=== PATIENT | female | born 1975 | race Caucasian/White ===

== ENCOUNTER 2020-10-30 22:12 | Emergency (ER) | payer SELFPAY ==
[2020-10-30 22:51] VITALS: BP 111/52; PULSE 78; RESP 18; TEMP 36.6; O2SAT 98
--- NOTE | 2020-10-30 23:41 | XRR_ITS ---
PROCEDURE INFORMATION: Exam: XR Left Ankle Exam date and time: 10/30/2020 11:41 PM Age: 45 years old Clinical indication: Injury or trauma; Fall; Blunt trauma; Ankle; Left; Patient HX: Twisting injury while walking down steps. Swelling to lateral malleolus. ; Additional info: Ankle injury TECHNIQUE: Imaging protocol: XR Left ankle. Views: 3 or more views. COMPARISON: No relevant prior studies available. FINDINGS: Bones/joints: No acute fracture or dislocation. Soft tissues: Normal. XR/XR ankle LT min 3V* [id number] IMPRESSION: No acute fracture or dislocation.
--- NOTE | 2020-10-30 23:41 | XRR_ITS ---
PROCEDURE INFORMATION: Exam: XR Left Foot Exam date and time: 10/30/2020 11:41 PM Age: 45 years old Clinical indication: Injury or trauma; Fall; Blunt trauma; Foot; Left; Patient HX: Twisting injury while walking down steps. Swelling to lateral malleolus. ; Additional info: Foot injury TECHNIQUE: Imaging protocol: XR Left foot. Views: 3 or more views. COMPARISON: No relevant prior studies available. FINDINGS: Bones/joints: No acute fracture or dislocation. Soft tissues: Normal. XR/XR foot LT min 3V* [id number] IMPRESSION: No acute fracture or dislocation.
[2020-10-31 01:33] VITALS: BP 96/50; PULSE 69; RESP 17; O2SAT 96
--- NOTE | 2020-10-31 02:58 | W.ED.EXTPRO ---
HPI - Extremity Problem General: Chief complaint: Extremity Injury, Lower Stated complaint: LLE INJURY Time Seen by Provider: 10/31/20 02:54 History of Present Illness: HPI Narrative: Patient is a 45-year-old female comes to the ED with left ankle and foot injury. Patient says she was walking down some steps and missed one of the edges of the steps and twisted her left foot and ankle. Injury occurred just prior to arrival. She says it hurts to bear weight on left foot and she rates the pain currently an 8 out of 10. Most of pain is located on the left lateral ankle and around the midfoot of left foot. Associated symptoms: Deny chest pain, fever(s) or rash Review of Systems Const: Denies: fever(s), chills or fatigue Eyes: Denies: change in vision or eye discomfort ENMT: Denies: throat pain, odynophagia, nasal discharge or nasal congestion Card: Denies: chest pain, palpitations, edema, swelling of feet/ankles, dyspnea on exertion or orthopnea Resp: Denies: dyspnea, productive cough or non-productive cough GI: Denies: abdominal pain, nausea, vomiting, diarrhea, constipation or hematochezia : Denies: flank pain, dysuria or hematuria Musc: Reports: extremity pain (Left foot and ankle) and extremity swelling (Left foot and ankle); Denies: neck pain or back pain Skin/Breast: Denies: rash or new lesions Neuro: Denies: headache(s), numbness in extremities or weakness in extremities [facility] ED Female Reproductive History: Date of last menstrual period: 10/28/20 Physical Exam Const: COMMON NORMALS: no acute distress, patient oriented x3 and alert GENERAL APPEARANCE: cooperative and comfortable HENMT: COMMON NORMALS: normocephalic HEAD & SCALP: normocephalic MOUTH: Normal oral and palatal mucosa present THROAT: posterior oropharynx normal and uvula midline Neck/C-Spine: COMMON NORMALS: supple GENERAL: Yes normal visual inspection Resp: COMMON NORMALS: normal respiratory effort, No retractions, No use of accessory muscles and clear to auscultation bilaterally AUSCULTATION: clear to auscultation bilaterally Cardio: COMMON NORMALS: regular rate, regular rhythm, S1 normal heart sound present, S2 normal heart sound present, No gallops present (Cardio), No clicks present (Cardio), No murmurs present (Cardio) and Peripheral pulses 2+ throughout RATE: regular rate RHYTHM: regular rhythm HEART SOUNDS: S1 normal heart sound present and S2 normal heart sound present PERIPHERAL PULSES: Peripheral pulses 2+ throughout GI: COMMON NORMALS: Normal to inspection, nondistended, normoactive bowel sounds present, Soft to palpation, non-tender and no masses PALPATION: Yes Soft to palpation : COMMON NORMALS: Yes no CVA tenderness BLADDER/KIDNEY EXAM: Yes no CVA tenderness Back/Pelvis: COMMON NORMALS: no CVA tenderness Extremity: GENERAL: Yes normal exam except as noted LEFT LOWER EXTREMITY: Yes ankle joint Left ankle: Yes inspection (No visible deformity or ecchymosis. Visible swelling to lateral malleolus), Yes palpation (Tender over lateral malleolus), Yes ROM (Limited due to pain) and Yes neurovascular exam (Intact) and Yes foot & digits Left foot and digits: Yes inspection (No visible deformity or ecchymosis seen. Minimal swelling to foot), Yes palpation (Tender over midfoot region), Yes ROM (Limited due to pain) and Yes neurovascular exam (Intact) Neuro: COMMON NORMALS: patient oriented x3 and moves all extremities SENSORIUM/ORIENTATION: Yes alert Skin: GENERAL SKIN EXAM: dry skin Course Vital Signs: Vital signs: Vital Signs Temperature 97.8 F 10/30/20 22:51 Pulse Rate 69 10/31/20 01:33 Respiratory Rate 17 10/31/20 01:33 Blood Pressure 96/50 10/31/20 01:33 Pulse Oximetry 96 10/31/20 01:33 MDM - Extremity (Nontraumatic) MDM Narrative: Medical decision making narrative: Patient is a 45-year-old female comes to the ED with left foot and ankle injury. Patient says she stepped down from steps and twisted her left foot and ankle. Exam shows some swelling to the lateral aspect of the ankle and foot. She has some tenderness over the anterior aspect of lateral malleolus in the midfoot region. No deformity noted. Neurovascular tact distally. X-ray of left ankle left foot showed no acute fractures. Patient diagnosed with ankle sprain and strain and discharged home on crutches. Told to rest ice and elevate left ankle. She was discharged home with a prescription for ibuprofen 800 mg. Follow-up with PCP in 7 to 10 days reevaluation. Return to ED precautions given. Patient understood agree with plan. Imaging Data^: Xray Ortho: Attestation: I personally reviewed and interpreted this imaging study as follows: My impression: Left ankle and left foot x-ray showed no acute fractures. There is some soft tissue swelling noted. Discharge Plan Discharge Patient Disposition: Home Clinical Impression: Ankle sprain and strain Condition: Stable Prescriptions: New ibuprofen 800 mg tablet 800 mg PO Q8H PRN (Reason: pain) Qty: 20 RF: 0 Discharge Orders: Discharge ED (Routine); Ordered 10/31/20 Ordered By: Timothy Kelly Discharge Diet: Regular Discharge Activity: Increase activity as tolerated and Use walker/crutches as instructed Patient Instructions: Ankle Sprain (ED), Ankle Exercises (GEN) Activity Restrictions/Additional Instructions: Follow-up with medical provider as directed in 7 days for reevaluation. Use crutches for the next 2 to 3 days to limit weightbearing and allow for healing then advance weightbearing as tolerated. Rest, ice and elevate left foot to help with symptoms. If no improvement after 7 days have foot/ankle reevaluated and possibly get another x-ray. Take medications as prescribed. Return to the ER or your medical provider if condition worsens. Please read and understand discharge instructions. Thank you for choosing [facility] for your healthcare needs today. Please realize this is an emergency room and that we are providing you with a medical screening exam and this may not be complete and all inclusive of all the testing and or work up that you may need to determine your ailment or severity of your illness. It is very important that you follow up as instructed or that you return to the Emergency Department should you have concerns or if your condition changes or worsens in any way. Stand Alone Forms: Work/School Release Coding Level of Care Code ED Services Advisor for Hedy Fwd Exam Comprehensive
[2020-10-31] MEDS: HYDROcodone-acetaminophen 5-325 mg Tablet 1 TAB PO (03:08)
== END 2020-10-31 04:13 | disposition home or self-care (01) ==
PROVIDERS: Emergency Provider Physician Assistant
DX: S93.402A Sprain of unspecified ligament of left ankle, initial encounter (principal); X50.1XXA Overexertion from prolonged static or awkward postures, initial encounter
CPT/HCPCS: 73610; 73630; 99283; E0114

== ENCOUNTER 2024-11-07 15:17 | Emergency (ER) | payer SELFPAY ==
--- OUTSIDE RECORDS SUMMARY | 2024-11-07 04:34 | XMS_ITS | Encounter Summary ---
[facility] Organization [facility] Address [address] [place] [address] Care Team Providers Care Film Sound Engineer Name Role Phone Unavailable Primary Care Provider Unavailabl e Reason for Visit * Reason Comments Insect bite/Sting Occurred on 10/24. Co mpleted abx. Used a home potion without any improvement. I want to stay here until my leg gets better. Reports her leg feels warm to touch. Has not checked temp. Encounter Details Date Type Department Care Team (Late st Contact Info) Description 11/07/2024 4:34 AM CDT - 11/07/2024 4:[address] 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 Gender Identity Not on file Sexual Orientation Not on file documented as of this encounter Last Filed Vital Signs Vital Sign Reading Time Taken Comments Blood Pressure 110/43 11/06/2024 8:01 PM CDT pt's BP trending down, Primary RN made aware Pulse 78 11/06/2024 8:01 PM CDT Temperature 36.3 C (97.3 F) 11/06/2024 8:01 PM CDT Respiratory Rate 18 11/06/2024 8:01 PM CDT Oxygen Saturation 98% 11/06/2024 8:0 1 PM CDT Inhaled Oxygen Concentration - - Weight 74.8 kg (165 lb) 11/06/2024 1:18 PM CDT Height 162.6 cm (5' 4 ) 11/06/2024 1:18 PM CDT Body Mass Index 28.32 11/06/2024 1:18 PM CDT documented in this encounter ED Notes * Lolita Iraheta RN - 11/07/2024 4:34 AM CDT Patient called in all three waiting rooms multiple times with no answer. Patient did not notify staff that they were leaving. Refusal of services form signed by this RN. * Lolita Iraheta RN - 11/07/2024 4:32 AM CDT NA x3 * Lolita Iraheta RN - 11/07/2024 4:10 AM CDT NA x2 * Lolita Iraheta RN - 11/07/2024 4:10 AM CDT NA x1 * Lis Newman RN - 11/06/2024 8:02 PM CDT Reassessed pt in WR. Unchanged since arrival. VS updated. Pt A&Ox4. Resp even and unlabored. Visitor at side. Pt instructed to notify ED staff if experiencing any changes in condition or if having any questions or concerns. * Marly Wu FNP - 11/06/2024 1:55 PM CDT Pt was evaluated in triage at 1:56 PM with complaint of brown recluse bite. Pt is a 49 y.o. female who presented today with a complaint of brown recluse bite. Patient reports that she was evaluated approximately 2 weeks ago for brown recluse bite. Started onantibiotics and have completed it. Wound is increasing in size. No significant increase in the cellulitic area. Significant medical history includes no chronic medical condition No orders at triage were ordered at this time. Vitals: Vitals: 11/06/24 1318 BP: 114/81 BP Location: Right arm Patient Position (BP): Sitting Pulse: (!) 104 Resp: 16 Temp: 97.8 ??F (36.6 ??C) TempSrc: Temporal SpO2: 99% Weight: 74.8 kg (165 lb) Height: 5' 4 (1.626 m) Pain Scale: 2 Physical Exam: General appearance: Alert, in no distress Neck: supple, trachea midline Lungs: normal respiratory effort Abdomen: Soft Extremities: moves all extremities Skin: pink, warm, dry Neurologic: Grossly normal Discussed patient's pain and/or nausea management. Offered oral medication per triage protocols. Patient desires oral medication offered. A medical screening exam was initiated in our triage area tailored to the patient's chief complaint. Focused diagnostics and therapies have been initiated, will continue and expand as appropriate to help identify any life or limb threatening conditions while awaiting an exam room in the main area of the ED. Continued care, evaluation and management of this patient will be performed throughout their stay. The patient's evaluation and anticipated ongoing care plan was discussed in detail with them to make sure they are aware of what to expect during their stay. Portions of this documentation may have been created by an artificial industrial paramedic software. Effort has been done to assure accuracy of industrial paramedic. Any obvious errors or omissions should be clarified with the author of the document. JENNIFER Polanco documented in this encounter Plan of Treatment Not on file documented as of this encounter Visit Diagnoses Not on filedocumented in this encounter
--- OUTSIDE RECORDS SUMMARY | 2024-11-07 15:25 | XMS_ITS | Encounter Summary ---
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
--- OUTSIDE RECORDS SUMMARY | 2024-11-07 15:25 | XMS_ITS | Clinical Summary ---
Author Organization [facility] Address [address] Attn: Epic Prelude ADT [place] [phone] Care Team Providers Care Brush Holder Inspector Name Role Phone Unavailable Primary Care Provider Unavailabl e Allergies Active Allergy Reactions Criticality Noted Date Comments Iodine Rash Low 01/12/2012 Medications clindamycin HCL (CLEOCIN) 300 mg Capsule Take 1 Capsule (300 mg) by mouth 4 times daily for 10 days. 40 Capsule 10/24/2024 11/04/19 25 Encounters Date Type Department Care Team Description 11/07/2024 4:34 AM CDT - 11/07/2024 4:35 AM CDT Emergency [facility] Emergency Department [address] [place] [phone] Discharge Disposition: Eloped After Seeing Provider 11/06/2024 Travel 10/24/2024 8:14 PM CDT - 10/24/2024 8:27 PM CDT Emergency [facility] Emergency Department [address] [place] [phone] Cellulitis of left thigh (Primary Dx) Discharge Disposition: Home or Self Care 10/24/2024 Patient Outreach [facility] [address] [place] [address] Hilary Caputo Referral 10/24/2024 Travel from Last 3 Months Social History Tobacco Use Types Packs/Day Years Used Date Smoking Tobacco: Every Day Alcohol Use Standard Drinks/Week Comments No 0 (1 standard drink = 0.6 oz pur e alcohol) Comments Unknown Sex and Gender Information Value Date Recorded Sex Assigned at Not on file 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 Gender Identity Not on file Sexual Orientation Not on file Last Filed Vital Signs Vital Sign Reading [...] Mass Index 28.32 11/06/2024 1:18 PM CDT Plan of Treatment Health Maintenance Due Date Last Done Comments Pre-Diabetes and Diabetes Screening 1975 DTAP/TDAP/TD VACCINES (1 - Tdap) 1994 HEPATITIS B VACCINES (1 of 3 - 19+ 3-dose series) 02/03 HPV/Cotest (21-29) 02/22/1996 CERVICAL CANCER SCREENING 2005 HPV/Cotest (30-65) 2005 PAP SMEAR 2005 BREAST CANCER SCREENING 2015 COLORECTAL SCREENING 02/22/2020 Colorectal Cancer Screening 02/22/2020 FIT-DNA Q 3 years 02/22/2020 FIT/FOBT Q 1 year 02/22/2020 Flex Sig/CT Colonography Q 5 years 02/22/2020 INFLUENZA VACCINE (#1) 2024
[2024-11-07 15:41] VITALS: BP 107/62; PULSE 92; RESP 14; TEMP 36.7; O2SAT 99
--- NOTE | 2024-11-07 16:57 | XRR_ITS ---
PROCEDURE INFORMATION: Exam: XR Right Femur Exam date and time: 11/07/2024 5:05 PM Age: 49 years old Clinical indication: Injury or trauma; Other: Wound; Patella or knee; Right; Without foreign body; Additional info: Necrosis, need XR of distal femur where wound is posterior distal TECHNIQUE: Imaging protocol: Radiologic exam of the right femur. Views: 2 views. COMPARISON: No relevant prior studies available. FINDINGS: Bones/joints: Unremarkable. No acute fracture. Soft tissues: Unremarkable. XR/XR femur RT min 2V* [id number] IMPRESSION: No acute findings.
--- NOTE | 2024-11-07 17:01 | ED_ITS ---
HPI - Wound/Laceration 2 General: Chief Complaint: Wound/Laceration Stated Complaint: Spider bite Back of L leg History of Present Illness: Patient is a 49-year-old female with 2 weeks of worsening black to her posterior distal femur. She has been on a round of clindamycin. She states the blackening is worse. She has not been or been invited to go to wound care. She has not had any fevers. No sensation changes. No ambulatory dysfunction. She does have association of pain Associated symptoms: Denies chills, fever(s), nausea or vomiting Related Data Home Medications ?Medication ?Instructions ?Recorded ?Confirmed ibuprofen 200 mg tablet (Advil) 800 mg PO Q6H PRN Feve r Or Pain 11/07/24 11/07/24 Previous Rx's ?Medication ?Instructions ?Recorded dapsone 100 mg tablet 100 mg PO DAILY 30 days #30 tabs 11/07/24 doxycycline hyclate 100 mg capsule 100 mg PO BID 21 da ys #42 caps 11/07/24 Allergies Allergy/AdvReac Type Severity Reaction Status Date / Time Iodine and Iodide Containing Allergy ALGY-Hives Verified 11/07/24 15:47 Produc peppermint Allergy Unknown Verified 11/07/24 15:47 Review of Systems 2 Const: Denies: fever(s), chills, body aches, change in appetite, malaise or night sweats ENMT: Denies: throat pain or mouth pain Card: Denies: chest pain or palpitations Resp: Denies: dyspnea or non-productive cough GI: Denies: abdominal pain, nausea or vomiting Musc: Denies: neck pain or back pain Skin/Breast: Reports: sores Neuro: Denies: headache(s), numbness in extremities, weakness in extremities or lack of coordination PFSH ED 2 PFSH: Social History Smoking and tobacco/nicotine status: current every day tobacco/nicotine user Female Reproductive History: Spontaneous abortions: No Physical Exam 2 HENMT: COMMON NORMALS: normocephalic and atraumatic HEAD & SCALP: n ormocephalic and atraumatic Neck/C-Spine: COMMON NORMALS: full ROM, no lymphadenopathy and supple Lymph: LYMPHATIC: no lymphadenopathy noted Chest: COMMONS NORMALS: normal inspection of the chest and normal palpation of entire chest wall Resp: COMMON NORMALS: normal respiratory effort, No retractions and clear to auscultation bilaterally AUSCULTATION: clear to auscultation bilaterally Cardio: COMMON NORMALS: regular rate and regular rhythm RATE: regular rate RHYTHM: regular rhythm GI: COMMON NORMALS: Normal to inspection, nondistended, normoactive bowel sounds present, Soft to palpation and non-tender PALPATION: Yes Soft to palpation : COMMON NORMALS: Yes no CVA tenderness BLADDER/KIDNEY EXAM: Yes no CVA tenderness Back/Pelvis: COMMON NORMALS: no CVA tenderness Extremity: COMMON NORMALS: normal to inspection, full ROM and capillary refill normal Skin: SKIN IMAGES (FEMALE): 1. necrosis center, surrounding erythema and granulation Course 2 Vital Signs: Vital signs: Vital Signs Temperature 98.0 F 11/07/24 15:41 Pulse Rate 91 11/07/24 18:54 Respiratory Rate 16 11/07/24 18:54 Blood Pressure 112/58 11/07/24 18:54 Pulse Oximetry 98 11/07/24 18:54 Oxygen Delivery Me thod Room Air 11/07/24 15:41 MDM - Wound/Laceration Medical Decision Making Patient is a 49-year-old female without seeing a spider had a black necrosis area to her posterior proximal distal leg on the left side. This is worsening in nature. She has not been to wound care. She has been placing baby cornstarch on it daily. She was taking clindamycin previously. I discussed with patient options. I would want her to follow-up in wound care until healing. She will have vancomycin x 1 year, and then placed on doxycycline for MRSA coverage. Wound care will be ordered with mupirocin, Vaseline gauze, and covered with nonadherent dressing. Patient should follow-up with wound care as discussed with her as well. Discussed necrosis of this wound and similarity to necrosis associated spider bite. There is an off label use for dapsone as I discussed with patient. She highly desires this and is asked me to send this to the pharmacy. I have discussed with her that it is an off label use, and we will not be able to do a prior authorization if it is not approved. I have also discussed good Rx with patient that she can obtain on her own. Patient states understanding and would like this accomplished Lab Data 11/07/24 17:26 11/07/24 17:26 Radiology Impressions Femur X-Ray 11/07/24 16:57 IMPRESSION: No acute findings. Laboratory Results WBC 7.50 10^3/uL (3.29-11.43) 11/07/24 17:26 RBC 4.25 10^6/uL (3.85-5.65) 11/07/24 17:26 Hgb 10.50 g/dL (11.27-16.99) L 11/07/24 17:26 Hct 34.9 % (36-47) L 11/07/24 17:26 MCV 82.1 fl (85-98) L 11/07/24 17:26 MCH 24.7 pg (27-33) L 11/07/24 17:26 MCHC 30.1 g/dL (30-55) 11/07/24 17:26 RDW 18.7 % (12.1-15.1) H 11/07/24 17:26 Plt Count 354 10^3/cmm (157-399) 11/07/24 17:26 MPV 9.7 fL (7.4-10.4) 11/07/24 17:26 Neut % (Auto) 52.2 % 11/07/24 17:26 Lymph % (Auto) 33.6 % 11/07/24 17:26 [place] % (Auto) 6.3 % 11/07/24 17:26 Eos % (Auto) 6.1 % 11/07/24 17:26 Baso % (Auto) 1.5 % 11/07/24 17:26 Neut # (Auto) 3.92 10^3/uL (1.8-7.7) 11/07/24 17:26 Lymph # (Auto) 2.5 10^3/uL (0.8-4.8) 11/07/24 17:26 [place] # (Auto) 0.5 10^3/uL (0.2-0.9) 11/07/24 17:26 Eos # (Auto) 0.5 10^3/uL (0.0-0.8) 11/07/24 17:26 Baso # (Auto) 0.1 10^3/uL (0.0-0.1) 11/07/24 17:26 Nucleated RBC % (auto) 0 % 11/07/24 17:26 Nucleated RBCs # 0.0 /100WBC 11/07/24 17:26 Sodium 139 mmol/L (136-145) 11/07/24 17:26 Potassium 4.3 mmol/L (3.5-5.1) 11/07/24 17:26 Chloride 104 mmol/L (98-107) 11/07/24 17:26 Carbon Dioxide 21 mmol/L (22-29) L 11/07/24 17:26 Anion Gap 18.3 (5-19) 11/07/24 17:26 BUN 11 mg/dL (6-20) 11/07/24 17:26 Creatinine 0.6 mg/dL (0.5-0.9) 11/07/24 17:26 GFR Calculation 106.3 mL/min (90-130) 11/07/24 17:26 Glucose 100 mg/dL (65-115) 11/07/24 17:26 Calculated Osmolality 287 mOsm/kg (285-295) 11/07/24 17:26 Calcium 8.8 mg/dL (8.5-10.5) 11/07/24 17:26 Total Bilirubin 0.2 mg/dL (0.15-1.2) 11/07/24 17:26 AST 17 U/L (0-32) 11/07/24 17:26 ALT 11 U/L (0-33) 11/07/24 17:26 Alkaline Phosphatase 79 U/L (35-105) 11/07/24 17:26 Total Protein 7.0 g/dL (6.6-8.7) 11/07/24 17:26 Albumin 3.9 g/dL (3.5-5.2) 11/07/24 17:26 Globulin 3.1 g/dL (1.3-4.6) 11/07/24 17:26 All radiology interpretation(s) finalized by discharge ED provider radiology interpretation(s): no acute findings Discharge Plan Discharge Patient Disposition: Home Clinical Impression: Avulsion of skin, Abscess Condition: Stable Prescriptions: New doxycycline hyclate 100 mg capsule 100 mg PO BID 21 Days Qty: 42 0RF dapsone 100 mg tablet 100 mg PO DAILY 30 Days Qty: 30 0RF No Action ibuprofen [Advil] 200 mg Tablet 800 mg PO Q6H PRN (Reason: Fever Or Pain) Discharge Orders: Discharge ED (Routine); Ordered 11/07/24 Ordered By: Bianca Boateng Discharge Diet: Usual diet Discharge Activity: Resume usual activity Patient Instructions: Brown Recluse Spider Bite (ED), Patient Portal & Jean Carlos Instructions Activity Restrictions/Additional Instructions: Dapsone, as we discussed is off label use for the necrosis of your spider bite. Take 1 by mouth daily. If your insurance does not cover this, GoodRx is the cheapest discount route and appears to be approximately $30 at [facility]. We are unable to do a prior authorization through the emergency department. Doxycycline, utilize for infection needs to be taken twice daily for 3 weeks. Make sure you take food with this or you will think you are allergic, and have a side effect. Do not take it with milk products, however aside from taking it you can utilize milk products. Caution on being out in the sun prolonged because it can cause sunburning if not wearing sunblock. Case management should call you regarding setting up wound care. Please go to wound care for directions on healing of your leg. In the interim, place the mupirocin on your leg, cover with Vaseline gauze, and nonadherent dressing. If you do not have Vaseline gauze Vaseline over the mupirocin will be fine. Make sure you clean this area with pHisoDerm and or antibacterial soap at least daily. Then you want to place your mupirocin, Vaseline, then nonadherent dressing. Tylenol and ibuprofen for pain Print Language: Luxembourgish Coding Level of Care Code ED Escalator Operator for Hedy Barrios
[2024-11-07] MEDS: mupirocin oint 22 gm 1 APPLIC TOPICAL (17:21)
[2024-11-07 17:35] LABS: Hematocrit 34.9 % (36-47); Hemoglobin 10.50 g/dL (11.27-16.99); Mean Corpuscular HGB Conc 30.1 g/dL (30-55); Mean Corpuscular Hemoglobin 24.7 pg (27-33); Mean Corpuscular Volume 82.1 fl (85-98); Nucleated Red Blood Cells % 0 %; Platelet Count 354 10^3/cmm (157-399); Red Blood Count 4.25 10^6/uL (3.85-5.65); White Blood Count 7.50 10^3/uL (3.29-11.43)
[2024-11-07 17:56] LABS: Alanine Aminotransferase 11 U/L (0-33); Albumin Level 3.9 g/dL (3.5-5.2); Alkaline Phosphatase 79 U/L (35-105); Aspartate Amino Transferase 17 U/L (0-32); Blood Urea Nitrogen 11 mg/dL (6-20); Calcium 8.8 mg/dL (8.5-10.5); Carbon Dioxide 21 mmol/L (22-29); Chloride 104 mmol/L (98-107); Creatinine Clr Calc Pharmacy 112.3673; Globulin 3.1 g/dL (1.3-4.6); Glucose 100 mg/dL (65-115); Osmolality Calculated 287 mOsm/kg (285-295); Sodium 139 mmol/L (136-145); Total Protein 7.0 g/dL (6.6-8.7)
[2024-11-07 18:00] LABS: Anion Gap 18.3 (5-19); Potassium 4.3 mmol/L (3.5-5.1)
[2024-11-07 18:10] VITALS: BP 114/64; O2SAT 97
[2024-11-07 18:31] VITALS: BP 119/52; O2SAT 96
[2024-11-07 18:54] VITALS: BP 112/58; PULSE 91; RESP 16; O2SAT 98
--- NOTE | 2024-11-08 07:11 | DCPLANNER ---
messaged wound care for er f/u
== END 2024-11-07 18:55 | disposition home or self-care (01) ==
PROVIDERS: Emergency Provider Physician Assistant
DX: S81.852A Open bite, left lower leg, initial encounter (principal); W57.XXXA Bitten or stung by nonvenomous insect and other nonvenomous arthropods, initial encounter; L02.416 Cutaneous abscess of left lower limb; Z72.0 Tobacco use
CPT/HCPCS: 73552; 80053; 85025; 96374; 99284; J3373; J9999